=== PATIENT | female | born 1950 | race Caucasian/White ===

== ENCOUNTER → 2016-07-07 | Outpatient (CLI) | payer OTHER ==
[~2016-07-07] MED LIST: ANAS1TAB19 PO; ASPCH81X PO; IBUP-103 PO; MULT-513 PO; SIMV40TA2 PO; VALA1TAB PO
[2016-07-07 14:18] VITALS: BP 134/83; PULSE 53; TEMP 36.5; O2SAT 99
--- NOTE | 2016-07-07 16:14 | Radiation Oncology Follow-Up ---
Radiation Oncology Follow-Up Date of Visit Jul 07, 2016. Reason For Visit Annual follow-up Radiation Completion Date finished 08-21-2013 Diagnosis (1) Cancer of central portion of right female breast Status: Resolved Onset Date: 03/22/2013 Histology Subtype: ductal Stage: l (A) Permanent Comment: Abnormal right breast mammogram Status post MRI guided right breast biopsy 03/22/2013 revealing low-grade invasive ductal carcinoma Estrogen receptor positive, progesterone receptor positive, HER-2/shy negative Status post lumpectomy and sentinel lymph node biopsy 04/25/2013 Stage [id number] Oncotype DX score of 10 Status post completion of radiation therapy 08/21/2013 received 6120 cGy Last Edited By: Shawna Rodriguez on Apr 11, 2015 16:27 Interim History She's been doing well over this past year. She has noticed no changes to her breast. She's noted no masses or tenderness and no change of the axilla. She' s had no swelling of her arm. She is up-to-date on mammography. She had mammogram 11/12/2015. This showed previous radiation therapy and lumpectomy. There was no evidence of malignancy. 12 months mammogram was recommended. She was unsure whether her next mammogram is scheduled for October 2016. She continues on Arimidex and denies side effects. Allergies Coded Allergies: No Known Allergies (Unverified , 06/09/13) Home Medications Scheduled Anastrozole (Arimidex), 1 MG PO DAILY Aspirin (Aspirin Chewable), 81 MG PO DAILY Multivitamins/Minerals (Mvi With Minerals), 1 TAB PO DAILY Simvastatin (Zocor), 40 MG PO QPM Valacyclovir (Valtrex), 1,000 MG PO PRN Scheduled PRN Ibuprofen Tab (Advil), 200 MG PO for Pain Review of Systems Gastrointestinal: Symptoms: WNL Oral: Symptoms: No Problems Respiratory: Symptoms: WNL Urinary: Symptoms: Nocturia Comments: nocturia 1-2 times Skin: Symptoms: No Problems Breast: Right Upper Arm Measurement: 28.5 Right Mid Arm Measurement: 24.0 Right Wrist Measurement: 16.7 Left Upper Arm Measurement: 31.0 Left Mid Arm Measurement: 24.0 Left Wrist Measurement: 16.5 Arm Dominence: Right Patient Cosmetic Evaluation: Excellent Staff Cosmetic Evalaluation: Excellent Physical Exam Vital Signs Date Time Temp Pulse Resp B/P Pulse Ox O2 Delivery O2 Flow Rate FiO2 07/07/16 14:18 36.5 53 20 134/83 99 Pain: Side: Bilateral Patient Pain Scale: 0 - 10 Initial Pain Intensity: 0.0 Fatigue: None General Appearance: no apparent distress Eyes: normal inspection, EOMI ENT: normal ENT inspection, hearing grossly normal Neck: supple, no adenopathy, thyroid normal Respiratory/Chest: lungs clear, no respiratory distress, no accessory muscle use Breast: Breast examination reveals well-healed incisions of the right breast. There are no masses or tenderness and no axillary adenopathy. There is slight telangiectasis of the central upper portion of the breast. There are no skin retractions. Using the [place] score cosmesis she has a good outcome. The left breast showed no masses or tenderness no axillary adenopathy. Cardiovascular: regular rate, rhythm, no gallop, no murmur Abdomen: non tender, soft Extremities: no pedal edema Neurologic/Psychiatric: no motor/sensory deficits, alert, normal mood/affect Skin: warm/dry Lymphatic: no adenopathy Laboratory Studies 2. Additional Studies She had mammogram 11/12/2015. On the right showed status post previous radiation therapy and lumpectomy. Benign no evidence of malignancy. Normal 12 month interval recommended. Bilateral breasts show no evidence of malignancy. Follow-up in 12 months. BI-RADS Category Assessment & Plan Plan: Continue annual mammography. We discussed check the schedule and she had not been scheduled for mammography. This was set up for her. Continue follow- up with Dr. Mirza and her PCP. We asked her to return to our office in 1 year. She may call she has any questions or concerns in the interim. Total Time In Follow-Up I spent 20 minutes speaking to the patient performing examination. I sent 15 minutes reviewing information in completing this note. Copy To Froilan Patel M.D.; Marty Mirza M.D.
== END | disposition home or self-care (01) ==
LOC: C.ONC 14:00
PROVIDERS: ATTEND Radiology Radiation Oncology
DX: Z08 Encounter for follow-up examination after completed treatment for malignant neoplasm (principal); Z92.3 Personal history of irradiation; Z85.3 Personal history of malignant neoplasm of breast